=== PATIENT | male | born 1965 | race Asian ===

== ENCOUNTER 2017-09-19 10:40 | Inpatient (IN) | payer OTHER ==
--- NOTE | 2008-09-20 22:00 | NUR ---
CHEST X-RAY DONE AND LAB WORKS DONE AT BEDSIDE. PT FAMILY CAME TO VISIT FAMILY AND HELPED PT TO CLARIFIY INSTRUCTIONS FOR GOLYTELY BOWEL PREP. PT WAS EXPLAINED THAT HE NEEDS TO DRINK A CUP OF GOLYTELY EVERY 1/2 HOUR, NO MORE OR LESS BECAUSE DRINKING BOWEL PREP TOO QUICKLY ALSO HAS SIDE EFFECTS OF NAUSEA AND POSSIBLE VOMITING WHICH THE SURGEON WANTS TO AVOID. PT VERBALIZED UNDERSTANDING THROUGH OBSTETRICS TECHNICIAN. PT TO BE NPO POST MIDNIGHT AND SURGERY TO BE DONE TOMORROW AFTERNOON AT 12 OR 1 PM. PT VERBALIZED UNDERSTANDING.
--- NOTE | 2016-09-20 20:00 | NUR ---
PT V/S FOLLOWS T 98.5 P 60 R 18 B/P 125/89 O2 100
--- NOTE | 2016-10-20 21:00 | NUR ---
DR SHARON COX MD AND SURGEON WAS AT BEDSIDE WITH SURGICAL CONSULT FOR PT. [employer] FITNESS INSTRUCTOR PHONES USED WITH RESOURCE CONSERVATIONIST RAY NO. ID [id number]. VIA [employer] FITNESS INSTRUCTOR DR HERRERA WAS ABLE TO SPEAK WITH RESIDENT REGARDING THE MASS THEY HAD IN PT COLON. PT CONSENTED TO BOWEL SURGERY TO TAKE OUT THE CANCEROUS PART OF THE COLON AND RESECTION THE BOWELS. EXPLAINED TO PT VIA [employer] FITNESS INSTRUCTOR THE POSSIBLE OUTCOMES INCLUDING A NEED FOR 2 SURGERIES WITH THE POSSIBILITY OF AN OSTOMY BAG. PT UNDERSTANDS THE RISK AND BENEFITS EXPLAINED TO THE [employer] FITNESS INSTRUCTOR. NEW ORDERS NOTED FOR PRE- OP PROCEDURE, LAB WORK, CHEST X RAY AND GOLYTELY BOWEL PREP. PT SIGNED CONSENT FOR SURGERY.
[~2017-09-19] VITALS: Ht 175.3 cm; Wt 74.4 kg
[2017-09-19 10:53] VITALS: BP 139/94
--- NOTE | 2017-09-19 10:57 | NUR ---
PT AMBULATES TO ER BED 12
--- NOTE | 2017-09-19 10:58 | NUR ---
PT BIB FOR C/O RT SIDE ABD PAIN AND TENDERNESS FOR 3 MONTHS, WORSE OVER PAST TWO WEEKS. DENIES N/V/D OR FEVER. PT A&O X 4. GCS 15. CMS INTACT. ABD SOFT, TENDER TO PALPATION. RR EVEN UNALBORED, LUNGS BILAT CLEAR. ER MD VAUGHN NOTIFIED. PT NEEDS MET. SAFETY PRECAUTIONS IN PLACE. WILL CONTINUE TO MONITOR. Addendum: 09[facility]19[facility]17 [facility] FOR C/O RT SIDE ABD PAIN AND TENDERNESS FOR 3 MONTHS, WORSE OVER PAST TWO WEEKS. DENIES N/V/D OR FEVER. PT A&O X 4. GCS 15. CMS INTACT. ABD SOFT, TENDER TO PALPATION ON THE UPPER AND LOWER RIGHT QUADRANTS. 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 RR EVEN UNALBORED, LUNGS BILAT CLEAR. ER MD VAUGHN NOTIFIED. PT NEEDS MET. SAFETY PRECAUTIONS IN PLACE. WILL CONTINUE TO MONITOR.
--- NOTE | 2017-09-19 11:35 | NUR ---
EKG being done at bedside at this time.
[2017-09-19 12:20] LABS: BASOPHILS # (AUTO) 0.1 K/uL (0.00-0.22); EOSINOPHILS # (AUTO) 0.3 K/uL (0-0.4); EOSINOPHILS % (AUTO) 4.3 % (0.0-4.0); HEMATOCRIT 49.6 % (36-52); HEMOGLOBIN 16.7 g/dL (12.0-18.0); LYMPHOCYTES # (AUTO) 1.9 K/uL (2.0-11.5); LYMPHOCYTES % (AUTO) 26.6 % (20.5-51.1); MEAN CORPUSCULAR HEMOGLOBIN 29 pg (27-31); MEAN CORPUSCULAR HGB CONC 34 g/dL (33-37); MEAN CORPUSCULAR VOLUME 86.7 fL (80-94); MONOCYTES # (AUTO) 0.4 K/uL (0.8-1.0); MONOCYTES % (AUTO) 6.2 % (1.7-9.3); NEUTROPHILS # (AUTO) 4.3 K/uL (1.8-7.7); NEUTROPHILS % (AUTO) 61.9 % (42.2-75.2); PLATELET COUNT (AUTO) 185 K/uL (140-450); RED BLOOD CELL COUNT(AUTO) 5.72 MIL/uL (4.20-6.10); RED CELL DISTRIBUTION WIDTH 13.9 % (11.6-13.7)
[2017-09-19 12:35] LABS: ANION GAP 14.7 (8-16); CARBON DIOXIDE 26.1 mmol/L (21-32); CREATININE 1.1 mg/dL (0.7-1.3); POTASSIUM 3.8 mmol/L (3.5-5.1)
[2017-09-19 12:36] LABS: PROTHROMBIN TIME 9.8 secs (10.8-13.4)
--- NOTE | 2017-09-19 12:37 | NUR ---
Lab at bedside at this time drawing second set for blood cultures.
[2017-09-19 12:41] LABS: ALBUMIN 3.8 g/dL (3.4-5.0); TOTAL BILIRUBIN 0.6 mg/dL (0.0-1.0)
--- NOTE | 2017-09-19 12:44 | NUR ---
Critical lab value received from Pes in lab, reported value Lactic Acid 2.1. ER MD Nair notified.
--- NOTE | 2017-09-19 12:51 | NUR ---
Assisted pt to restroom at this time for another attempt at urine collection.
[2017-09-19] MEDS: NACL 0.9% 1,000 ML IV SCH ×4 (13:06→23:57)
[2017-09-19] MEDS ORDERED: HYDROcodone/APAP 5/325 MG 1 TAB TAB PO PRN (14:00)
[2017-09-19] MEDS ORDERED: ACETAMINOPHEN 325 MG TAB PO PRN (14:00)
[2017-09-19] MEDS ORDERED: ONDANSETRON 4 MG/2 ML VIAL IVP PRN (14:00)
--- NOTE | 2017-09-19 14:05 | NUR ---
PT RESTING COMFORTABLY IN [facility] AT THIS TIME WITH HIS FAMILY AT THE BEDSIDE.
[2017-09-19 14:20] LABS: APPEARANCE,URINE CLEAR (CLEAR); BILIRUBIN,URINE NEGATIVE (NEGATIVE); BLOOD, URINE NEGATIVE (NEGATIVE); COLOR,URINE YELLOW (YELLOW); LEUKOCYTE ESTERASE ,URINE NEGATIVE (NEGATIVE); NITRITE, URINE NEGATIVE (NEGATIVE); UGLUCOSE 3+ (NEGATIVE)
--- NOTE | 2017-09-19 14:43 | NUR ---
Patient will be admitted to care of MD Alonso. Admited to M/S. Will go to room 105A. Belongings list completed. Report to NASEEM Serrano.
--- NOTE | 2017-09-19 15:10 | NUR ---
PATIENT FOUND IN THE ROOM WITH HIS TWO ADULT CHILDREN, ADMISSION ASSESSMENT COMPLETED WITH THE HELP OF RAJINDER ALFREDO. PATIENT IS STABLE AND ALERT AND ORIENTED. WILL MONITOR.
[2017-09-19 15:13] VITALS: BP 128/86
--- NOTE | 2017-09-19 17:30 | NUR ---
PATIENT SLEEPING AT THIS TIME, NO DISTRESS NOTED.
--- NOTE | 2017-09-19 19:30 | NUR ---
REPORT RECEIVED FORM BLADIMIR GUSMAN DAY SHIFT NURSE AT BEDSIDE. PT AO X4. HE IS A MANDARIN SPEAKING MALE, ALTHOUGH HE DOES SPEAK SOME POLISH. HE IS LYING IN BED WITH HOB UP 35 DEGREES AND BED IN LOW POSITION. PT HAS CALL GOOD IN REACH. HIS SKIN IS INTACT AND HE HAS A RIGHT WRIST 20G RUNNING NACL AT 100MLS/HR. SITE HAS NO S/S OF INFECTION AND IS FLUSHED PATENT. PT HAS NO S/S OF PAIN OR DISTRESS BOWEL SOUNDS HEARD IN ALL 4 QUADS AND LUNGS CLEAR.
[2017-09-19 20:00] VITALS: BP 118/84
--- NOTE | 2017-09-19 21:30 | NUR ---
PT SLEEPING IN BED NO S/S OF PAIN OR DISTRES NACL RUNNING AT 100MLS/HR ORDERED. CALL GOOD IN REACH AND SIDE RAILS UP X2. ALL NEEDS ATTENDED BY STAFF.
[2017-09-20] VITALS: BP 103/69
[2017-09-20 06:53] LABS: BASOPHILS # (AUTO) 0.1 K/uL (0.00-0.22); BASOPHILS % (AUTO) 1.1 % (0.0-2.0); EOSINOPHILS # (AUTO) 0.4 K/uL (0-0.4); EOSINOPHILS % (AUTO) 5.5 % (0.0-4.0); HEMATOCRIT 46.9 % (36-52); HEMOGLOBIN 15.7 g/dL (12.0-18.0); LYMPHOCYTES # (AUTO) 2.5 K/uL (2.0-11.5); LYMPHOCYTES % (AUTO) 39.2 % (20.5-51.1); MEAN CORPUSCULAR HEMOGLOBIN 29 pg (27-31); MEAN CORPUSCULAR HGB CONC 33 g/dL (33-37); MEAN CORPUSCULAR VOLUME 87.7 fL (80-94); MONOCYTES # (AUTO) 0.4 K/uL (0.8-1.0); MONOCYTES % (AUTO) 6.9 % (1.7-9.3); NEUTROPHILS # (AUTO) 3.1 K/uL (1.8-7.7); NEUTROPHILS % (AUTO) 47.3 % (42.2-75.2); PLATELET COUNT (AUTO) 183 K/uL (140-450); RED BLOOD CELL COUNT(AUTO) 5.35 MIL/uL (4.20-6.10); RED CELL DISTRIBUTION WIDTH 13.9 % (11.6-13.7); WHITE BLOOD COUNT (AUTO) 6.5 K/uL (4.8-10.8)
--- NOTE | 2017-09-20 07:10 | NUR ---
REPORT GIVEN TO BREANNA RN DAY NURSE AT BEDSIDE PT IN STABLE CONDITION
[2017-09-20 07:14] LABS: ALBUMIN 3.5 g/dL (3.4-5.0); ANION GAP 13.6 (8-16); CARBON DIOXIDE 24.8 mmol/L (21-32); CREATININE 0.9 mg/dL (0.7-1.3); POTASSIUM 3.4 mmol/L (3.5-5.1); TOTAL BILIRUBIN 0.8 mg/dL (0.0-1.0)
--- NOTE | 2017-09-20 07:30 | NUR ---
REPORT RECEIVED FROM BENCH LOOM WEAVER NURSE AT BEDSIDE. PT IS AAO X4. IV NOTED TO THE RIGHT WRIST 20G RUNNING NS AT 100MLS/HR. IV CATH IS PATENT, INTACT, AND ASYMPTOMATIC. BOWEL SOUND ACTIVE, PAIN AT TOLERABLE LEVEL. SAFETY PRECAUTION IN PLACE. CALL LIGHT WITHIN REACH, WILL CONTINUE TO MONITOR.
[2017-09-20 08:00] VITALS: BP 120/88
[2017-09-20] MEDS: ENOXAPARIN 40 MG/0.4 ML SYR SUBQ SCH (08:49)
--- NOTE | 2017-09-20 08:50 | NUR ---
PT REFUSED IVF. PT IS HEPLOCKED.
--- NOTE | 2017-09-20 09:04 | NUR ---
PATIENT HAS BEEN SCREENED AND CATEGORIZED HIGH NUTRITION RISK. PATIENT WILL BE SEEN WITHIN 1-2 DAYS OF ADMISSION. 09/20/17 09/21/[address]
--- NOTE | 2017-09-20 09:30 | NUR ---
DR TABARES HAS SEEN THE PT.
--- NOTE | 2017-09-20 13:18 | NUR ---
Clinical review faxed to [facility] at [phone]
[2017-09-20 16:00] VITALS: BP 115/75
--- NOTE | 2017-09-20 16:50 | NUR ---
SPOKE WITH [employer] DISTRIBUTOR OF DR HERRERA OFFICE, TO PAGE DR HERRERA FOR CONSULT FOR THE PT.
--- NOTE | 2017-09-20 19:25 | NUR ---
SPOKE WITH DR TOMLINSON WHO IS MAGNETOMETER OPERATOR FOR DR TABARES. PER , PT CAN HAVE SOME MILK AND CHOCOLATE BUT MONITOR FOR STOMACH UPSET. ORDERED 20MEQ PO K DUR FOR K 3.4
[2017-09-20] MEDS ORDERED: POTASSIUM CHLORIDE 10 MEQ TABER PO SCH (19:30)
--- NOTE | 2017-09-20 19:30 | NUR ---
REPORT RECEIVED AT BEDSIDE FROM BREANNA RN DAYSHIFT NURSE. PT IN LOW BED A0X4 WITH SIDE RAILS UP AND CALL GOOD IN REACH. PT SKIN INTACT. HE HAS A RIGHT WRIST 20 G JOSE SITE INTACT NO S/S OF INFECTION NOTED. NEW ORDER NOTED FOR 20MEQ K IN 1000 MLS OF NACL, DUE TO LOW POTASSUIM.
--- NOTE | 2017-09-20 19:30 | NUR ---
REPORT GIVEN TO SPECIAL EDUCATION CLASSROOM AIDE NURSE AT BEDSIDE. PT IN STABLE CONDITION.
[2017-09-20] MEDS ORDERED: BOWEL EVACUANT DRINK 4,000 ML PDS PO SCH (21:10)
[2017-09-20] MEDS: POTASSIUM CHL 20 MEQ/NACL 0.9% 1,000 ML IV SCH (22:08)
--- NOTE | 2017-09-20 23:00 | NUR ---
USED ATTENDANT CAMPGROUND PHONE WITH ATTENDANT CAMPGROUND RAY ID # [id number]. PT INSTRUCTIONS FOR BOWEL PREP WAS REITERATED WELL ANY CONCERNS REGARDING PRE SURGICAL PREP.
[2017-09-21] VITALS: BP 133/93
--- NOTE | 2017-09-21 01:00 | NUR ---
PT IN ROOM IV RUNNING ORDERED NACL WITH 20MEQ. NO S/S OF INFILTRATION. PT COMPLIANT WITH GOLYTELY BOWEL PREP. PT SHOWED PRIMARY RN BOWEL MATTER REQUESTED DURING THE TELEPHONE SMALL ENGINE TRAINER CONVERSATION. BOWEL MOVEMENT HAD NO SOLID MATTER. PT HAD NO C/O OF N/V AT THIS TIME. PT VERBALIZED UNDERSTANDING OF NPO STATUS.
[2017-09-21] MEDS: POTASSIUM CHL 20 MEQ/NACL 0.9% 1,000 ML IV SCH ×3 (04:30→17:15)
--- NOTE | 2017-09-21 07:20 | NUR ---
REPORT GIVEN AT BEDSIDE FOR TRASNSFER OF CARE TO BREANNA RN DAY NURSE. PT IN STABLE CONDITION
[2017-09-21 08:00] VITALS: BP 118/87
[2017-09-21] MEDS: ENOXAPARIN 40 MG/0.4 ML SYR SUBQ SCH (09:00)
--- NOTE | 2017-09-21 09:19 | NUR ---
PT MIGHT GOING FOR SX TODAY, LOVENOX NOT GIVEN.
--- NOTE | 2017-09-21 10:05 | NUR ---
PT IS AWARE OF THE SX TODAY. AND VERBALIZED UNDERSTANDING. NO QUESTION OR CONCERN AT THIS TIME.
--- NOTE | 2017-09-21 12:30 | NUR ---
STARTED NEW IV ON THE LEFT FA. 20G. REMOVED IV RIGHT WRIST , TIP INTACT, PRESSURE APPLIED.
--- NOTE | 2017-09-21 14:15 | NUR ---
09/21/17 RD INITIAL ASSESSMENT COMPLETED PLEASE REFER TO NUTRITION ASSESSMENT UNDER CARE ACTIVITY FOR ESTIMATED NUTRITIONAL NEEDS. 1. CONTINUE NPO DIET MEDICALLY NECESSARY 2. RECOMMEND CARDIAC DIET WHEN ADVANCING TO ORAL DIET. 3. RD TO FOLLOW-UP 2-3 DAYS, HIGH RISK BIJU LEWIS, RD
--- NOTE | 2017-09-21 14:19 | NUR ---
FAXED CONCURRENT REVIEW TO [facility] [phone] PHONE EREN [phone]
--- NOTE | 2017-09-21 14:20 | NUR ---
PT TAKEN TO OR. PT IS IN STABLE CONDITION.
[2017-09-21] MEDS ORDERED: BUPIVACAINE-MPF 0.25% 30 ML VIAL INJ ONE (14:55)
[2017-09-21] MEDS ORDERED: ROCURONIUM 50 MG/5 ML VIAL IV ONE (15:16)
[2017-09-21] MEDS ORDERED: fentaNYL 0.05 MG/ML VIAL ONE (15:16)
[2017-09-21] MEDS ORDERED: KETOROLAC 30 MG/ML VIAL ONE (15:16)
[2017-09-21] MEDS ORDERED: HYDROmorphone PFS 2 MG/ML SYR ONE ×2 (15:16→17:58)
[2017-09-21] MEDS ORDERED: PHENYLEPHRINE 10 MG/ML VIAL ONE (15:16)
[2017-09-21] MEDS ORDERED: DESFLURANE 240 ML BTL INH ONE (15:16)
[2017-09-21] MEDS ORDERED: GLYCOPYRROLATE 0.2 MG/ML VIAL ONE (15:16)
[2017-09-21] MEDS ORDERED: DEXAMETHASONE 4 MG/ML VIAL ONE (15:16)
[2017-09-21] MEDS ORDERED: SUCCINYLCHOLINE CHLORIDE 200 MG/10 ML VIAL IVP ONE (15:16)
[2017-09-21] MEDS ORDERED: LEVOFLOXACIN 750 MG/D5W PREMIX 150 ML IV SCH (15:36)
[2017-09-21] MEDS ORDERED: ONDANSETRON 4 MG/2 ML VIAL IVP PRN (16:20)
[2017-09-21] MEDS: HYDROmorphone 1 MG/ML AMP IVP PRN ×2 (17:58→18:10)
--- NOTE | 2017-09-21 19:10 | NUR ---
REPORT GIVEN TO NAVAL AIRCREWMAN MECHANICAL NURSE AT BEDSIDE. PT JUST CAME BACK FROM SX, V/S WITHIN NORMAL LIMIT. PT IN STABLE CONDITION.
--- NOTE | 2017-09-21 19:15 | NUR ---
RECEIVED PATIENT TRANSFERRED FROM THE OR. REPORT RECEIVED AT THE BEDSIDE, PER OR NURSE STEPHANIE, PATIENT RECEIVED LEVOFLOXACIN 750MG AND FLAGYL 500MG IN THE OR. PATIENT RESTING IN BED, NO S/S OF DISTRESS NOTED, RESPIRATION EVEN AND UNLABORED, ON O2 NC 2L. VITAL SIGNS STABLE. KIM IN PLACE AND DRAINING URINE BY GRAVITY. DRESSING ON THE ABDOMEN DRY AND INTACT. CALL LIGHT WITHIN REACH, SAFETY MEASURE ENSURED, WILL CONTINUE TO MONITOR.
[2017-09-21 20:00] VITALS: BP 126/84
[2017-09-21] MEDS: metroNIDAZOLE 500 MG/NS PREMIX 100 ML IV SCH ×3 (20:25→21:50)
[2017-09-21 20:26] LABS: HEMATOCRIT 47.8 % (36-52); HEMOGLOBIN 15.7 g/dL (12.0-18.0); MEAN CORPUSCULAR HEMOGLOBIN 29 pg (27-31); MEAN CORPUSCULAR HGB CONC 33 g/dL (33-37); MEAN CORPUSCULAR VOLUME 87.3 fL (80-94); PLATELET COUNT (AUTO) 192 K/uL (140-450); RED BLOOD CELL COUNT(AUTO) 5.48 MIL/uL (4.20-6.10); RED CELL DISTRIBUTION WIDTH 14.3 % (11.6-13.7); WHITE BLOOD COUNT (AUTO) 13.9 K/uL (4.8-10.8)
[2017-09-21 20:52] LABS: LYMPHOCYTES % (MANUAL) 3 % (20-46); MONOCYTES % (MANUAL) 2 % (5-12)
--- NOTE | 2017-09-21 21:50 | NUR ---
FLAGYL 500MG ADMINISTERED, PATIENT TOLERATED WELL. CALL LIGHT WITHIN REACH, SAFETY MEASURE ENSURED, WILL CONTINUE TO MONITOR.
--- NOTE | 2017-09-21 23:45 | NUR ---
VITAL SIGNS STABLE, NO S/S OF DISTRESS NOTED, OFFERED PAIN MEDICATION, BUT PATIENT REFUSED AND STATED," I AM OKAY." EDUCATED PATIENT TO CALL FOR PAIN MEDICATION BEFORE THE PAIN LEVEL BECOME SEVERE. PATIENT VERBALIZED UNDERSTANDING. CALL LIGHT WITHIN REACH, SAFETY MEASURE ENSURED, WILL CONTINUE TO MONITOR.
[2017-09-22] VITALS: BP 124/84
[2017-09-22] MEDS: POTASSIUM CHL 20 MEQ/NACL 0.9% 1,000 ML IV SCH (01:29)
--- NOTE | 2017-09-22 01:36 | NUR ---
PATIENT IS AWAKE, NO S/S OF DISTRESS NOTED, STATED," I DON'T NEED OXYGEN NOW." O2SAT 98%. NASAL CANNULA OFF, EDUCATED PATIENT TO CALL NURSE IF SHORTNESS OF BREATH. PATIENT VERBALIZED UNDERSTANDING.
--- NOTE | 2017-09-22 01:48 | NUR ---
CLARIFIED FLAGYL ORDER WITH PHARMACIST AMBERLY, PER AMBERLY, THE NEXT DOSE FOR FLAGYL IS SCHEDULED AT 0500 AM.
[2017-09-22] MEDS: MORPHINE SULFATE 2 MG/ML SYR IVP PRN ×3 (02:38→17:44)
--- NOTE | 2017-09-22 03:45 | NUR ---
VITAL SIGNS STABLE, NO S/S OF DISTRESS NOTED, RESPIRATION EVEN AND UNLABORED, ON ROOM AIR. ABDOMINAL DRESSING DRY AND INTACT. CALL LIGHT WITHIN REACH, SAFETY MEASURE ENSURED, WILL CONTINUE TO MONITOR.
[2017-09-22 04:00] VITALS: BP 114/77
[2017-09-22] MEDS: metroNIDAZOLE 500 MG/NS PREMIX 100 ML IV SCH ×3 (05:12→20:08)
--- NOTE | 2017-09-22 05:15 | NUR ---
FLAGYL STARTED, PATIENT TOLERATED WELL. CALL LIGHT WITHIN REACH, SAFETY MEASURED, WILL CONTINUE TO MONITOR.
[2017-09-22 06:17] LABS: BASOPHILS % (AUTO) 0.2 % (0.0-2.0); EOSINOPHILS % (AUTO) 0.1 % (0.0-4.0); HEMATOCRIT 44.8 % (36-52); HEMOGLOBIN 14.9 g/dL (12.0-18.0); LYMPHOCYTES # (AUTO) 1.3 K/uL (2.0-11.5); LYMPHOCYTES % (AUTO) 11.1 % (20.5-51.1); MEAN CORPUSCULAR HEMOGLOBIN 29 pg (27-31); MEAN CORPUSCULAR HGB CONC 33 g/dL (33-37); MEAN CORPUSCULAR VOLUME 86.9 fL (80-94); MONOCYTES # (AUTO) 0.8 K/uL (0.8-1.0); MONOCYTES % (AUTO) 6.8 % (1.7-9.3); NEUTROPHILS # (AUTO) 9.7 K/uL (1.8-7.7); NEUTROPHILS % (AUTO) 81.8 % (42.2-75.2); PLATELET COUNT (AUTO) 189 K/uL (140-450); RED BLOOD CELL COUNT(AUTO) 5.16 MIL/uL (4.20-6.10); WHITE BLOOD COUNT (AUTO) 11.8 K/uL (4.8-10.8)
--- NOTE | 2017-09-22 06:45 | NUR ---
ABDOMINAL PAIN 12/31, BP 118/77, HR 68, MORPHINE GIVEN ORDERED, PATIENT TOLERATED WELL. WILL CONTINUE TO MONITOR.
[2017-09-22 07:02] LABS: ALBUMIN 3.1 g/dL (3.4-5.0); ANION GAP 15.9 (8-16); CARBON DIOXIDE 23.2 mmol/L (21-32); CREATININE 0.8 mg/dL (0.7-1.3); POTASSIUM 4.1 mmol/L (3.5-5.1); TOTAL BILIRUBIN 0.8 mg/dL (0.0-1.0)
--- NOTE | 2017-09-22 07:35 | NUR ---
ENDORSED PLAN OF CARE TO DAY SHIFT RN, PATIENT RESTING IN BED, IN STABLE CONDITION.
--- NOTE | 2017-09-22 07:36 | NUR ---
RECEIVED REPORT FROM TANK FURNACE OPERATOR RN. PATIENT IS AAOX4, NO SIGNS AND SYMPTOMS OF ACUTE DISTRESS NOTED AT THIS TIME. AT THE BEDSIDE. HAS IV TO THE LEFT FA 20G RUNNING NS KCL AT 130 ML/HR. SITE IS CLEAN, DRY, PATENT AND INTACT. HAS KIM CATHETER DRAINING TO GRAVITY. PATIENT IS S/P COLECTOMY ON 09/21, SITE HAS DRESSING. DISCUSSED PLAN OF CARE WITH PATIENT AND HE VERBALIZED UNDERSTANDING. BED IN LOWEST POSITION, SIDE RAILS UP X2, CALL LIGHT WITHIN REACH. WILL CONTINUE TO MONITOR.
--- NOTE | 2017-09-22 07:50 | NUR ---
PATIENT REFUSED MORNING VITAL SIGNS.
[2017-09-22] MEDS ORDERED: POTASSIUM CHL 20 MEQ/NACL 0.9% 1,000 ML IV SCH (08:10)
[2017-09-22] MEDS: ENOXAPARIN 40 MG/0.4 ML SYR SUBQ SCH (09:07)
--- NOTE | 2017-09-22 09:12 | NUR ---
GAVE PATIENT LOVENOX, HE TOLERATED WELL.
[2017-09-22] MEDS: POTASSIUM CHL 20MEQ/D5-NS 1,000 ML IV SCH ×2 (10:10→20:08)
[2017-09-22] MEDS: MORPHINE SULFATE 4 MG/ML SYR IVP PRN ×4 (10:49→20:09)
[2017-09-22 12:00] VITALS: BP 125/71
--- NOTE | 2017-09-22 13:35 | NUR ---
REMOVED PATIENTS KIM CATHETER. TOLERATED WELL.
--- NOTE | 2017-09-22 14:00 | NUR ---
CHANGED PATIENTS ABDOMINAL DRESSING. ALL SUTURES ARE INTACT, NO SIGNS AND SYMPTOMS OF INFECTION NOTED. PATIENT TOLERATED WELL.
[2017-09-22 16:00] VITALS: BP 121/87
[2017-09-22] MEDS: LEVOFLOXACIN 750 MG/D5W PREMIX 150 ML IV SCH (16:05)
--- NOTE | 2017-09-22 19:15 | NUR ---
ENDORSED PATIENT TO METER READER INSPECTOR RN FOR CONTINUITY OF CARE. PATIENT IN STABLE CONDITION.
--- NOTE | 2017-09-22 19:25 | NUR ---
RECEIVED REPORT FROM DAY SHIFT, PATIENT RESTING IN BED, NO S/S OF DISTRESS NOTED, RESPIRATION EVEN AND UNLABORED, ON ROOM AIR. IV PATENT AND INTACT, ABDOMINAL DRESSING DRY AND INTACT. PLAN OF CARE DISCUSSED, PATIENT VERBALIZED UNDERSTANDING, CALL LIGHT WITHIN REACH, SAFETY MEASURE ENSURED, WILL CONTINUE TO MONITOR.
[2017-09-22 20:00] VITALS: BP 127/86
--- NOTE | 2017-09-22 20:10 | NUR ---
ABDOMINAL PAIN 9/10, MORPHINE ADMINISTERED ORDERED. PATIENT TOLERATED WELL. CALL LIGHT WITHIN REACH, SAFETY MEASURE ENSURED, WILL CONTINUE TO MONITOR.
--- NOTE | 2017-09-22 20:40 | NUR ---
INFORMED DR. HERRERA THAT PATIENT HASN'T URINATED SINCE THE KIM WAS D/C AROUND 1330 PM, AND PATIENT NEEDS STRONGER PAIN MEDICATION, DR. HERRERA SAID," IT'S OKAY, JUST MONITORING." RECEIVED ORDER OF DILAUDID 0.5MG IVP PRN Q2H FOR MODERATE PAIN, DILAUDID 1MG IVP PRN Q4H FOR SEVERE PAIN.
[2017-09-22] MEDS ORDERED: LEVOFLOXACIN 500 MG/D5W PREMIX 100 ML IV ONE (23:00)
[2017-09-22] MEDS: HYDROmorphone 1 MG/ML AMP IVP PRN (23:14)
[2017-09-22 23:24] VITALS: BP 126/92
--- NOTE | 2017-09-22 23:24 | NUR ---
400 ML URINE OUTPUT. PATIENT STATED ABDOMINAL PAIN 9/, BP 126/92, HR 78, DILAUDID 1MG GIVEN ORDERED. PATIENT TOLERATED WELL. SAFETY MEASURE ENSURED, WILL CONTINUE TO MONITOR.
[2017-09-23] MEDS: HYDROmorphone 1 MG/ML AMP IVP PRN ×8 (02:14→23:25)
--- NOTE | 2017-09-23 02:22 | NUR ---
ABDOMINAL PAIN /10, BP 130/96, HR 80, DILAUDID 0.5MG ADMINISTERED, WILL CONTINUE TO MONITOR.
[2017-09-23 04:00] VITALS: BP 137/96
[2017-09-23] MEDS: metroNIDAZOLE 500 MG/NS PREMIX 100 ML IV SCH ×3 (04:15→20:29)
--- NOTE | 2017-09-23 04:25 | NUR ---
ABDOMINAL PAIN 12/31, BP 137/96, HR 80, DILAUDID 1MG GIVEN ORDERED. WILL CONTINUE TO MONITOR.
[2017-09-23] MEDS: POTASSIUM CHL 20MEQ/D5-NS 1,000 ML IV SCH ×2 (06:12→16:31)
[2017-09-23 06:42] LABS: BASOPHILS % (AUTO) 0.4 % (0.0-2.0); EOSINOPHILS # (AUTO) 0.1 K/uL (0-0.4); EOSINOPHILS % (AUTO) 0.8 % (0.0-4.0); HEMATOCRIT 44.6 % (36-52); HEMOGLOBIN 15.1 g/dL (12.0-18.0); LYMPHOCYTES # (AUTO) 1.4 K/uL (2.0-11.5); LYMPHOCYTES % (AUTO) 13.9 % (20.5-51.1); MEAN CORPUSCULAR HEMOGLOBIN 29 pg (27-31); MEAN CORPUSCULAR HGB CONC 34 g/dL (33-37); MEAN CORPUSCULAR VOLUME 86.8 fL (80-94); MONOCYTES # (AUTO) 0.8 K/uL (0.8-1.0); MONOCYTES % (AUTO) 8.2 % (1.7-9.3); NEUTROPHILS # (AUTO) 7.7 K/uL (1.8-7.7); NEUTROPHILS % (AUTO) 76.7 % (42.2-75.2); PLATELET COUNT (AUTO) 188 K/uL (140-450); RED BLOOD CELL COUNT(AUTO) 5.14 MIL/uL (4.20-6.10); RED CELL DISTRIBUTION WIDTH 14.1 % (11.6-13.7)
[2017-09-23 07:09] LABS: ANION GAP 9.8 (8-16); CARBON DIOXIDE 26.6 mmol/L (21-32); CREATININE 0.8 mg/dL (0.7-1.3); POTASSIUM 3.4 mmol/L (3.5-5.1); TOTAL BILIRUBIN 0.8 mg/dL (0.0-1.0)
--- NOTE | 2017-09-23 07:29 | NUR ---
ENDORSED PLAN OF CARE TO DAY SHIFT, PATIENT RESTING IN BED, IN STABLE CONDITION.
--- NOTE | 2017-09-23 07:30 | NUR ---
RECEIVED REPORT FROM CLIP BAKER RN. PATIENT IS AAOX4, NO SIGNS AND SYMPTOMS OF ACUTE DISTRESS NOTED AT THIS TIME. AT THE BEDSIDE. HAS IV TO THE LEFT FA 20G RUNNING D5NS 20 MEQ KCL AT 100 ML/HR. SITE IS CLEAN, DRY, PATENT AND INTACT. HAS KIM CATHETER DRAINING TO GRAVITY. PATIENT IS S/P COLECTOMY ON 09/21, SITE HAS DRESSING. DISCUSSED PLAN OF CARE WITH PATIENT AND HE VERBALIZED UNDERSTANDING. BED IN LOWEST POSITION, SIDE RAILS UP X2, CALL LIGHT WITHIN REACH. WILL CONTINUE TO MONITOR.
[2017-09-23 07:55] VITALS: BP 150/99
--- NOTE | 2017-09-23 08:03 | NUR ---
PATIENTS OXYGEN SATURATION WAS 88%, WAS HAVING A HARD TIME TAKING DEEP BREATHS DUE TO THE ABDOMINAL PAIN THAT HE IS EXPERIENCING. MONITORED OXYGEN FOR A FEW MINUTES AND THEN PLACED PATIENT ON 2L NC. BEGAN TO SATURATE AT 93% WITH THE NASAL CANNULA. WILL CONTINUE TO MONITOR.
[2017-09-23] MEDS: ENOXAPARIN 40 MG/0.4 ML SYR SUBQ SCH (08:21)
--- NOTE | 2017-09-23 09:11 | NUR ---
REASSESSED PATIENTS BLOOD PRESSURE AND IT WAS 140/94. WILL CONTINUE TO MONITOR.
[2017-09-23] MEDS ORDERED: hydrALAZINE 20 MG/ML VIAL IVP PRN (09:30)
[2017-09-23] MEDS ORDERED: KCL 20 MEQ/WATER INJ PREMIX 100 ML IV SCH (10:00)
--- NOTE | 2017-09-23 11:15 | NUR ---
EXPLAINED TO PATIENT IMPORTANCE OF TRYING TO GET OUT OF BED OR A LEAST TRY TO SIT AT EDGE OF BED TO HELP OPEN UP LUNGS. EDUCATED FAMILY WELL TO HELP ENCOURAGE HIM TO DO SO.
--- NOTE | 2017-09-23 11:30 | NUR ---
SPOKE WITH DR HERRERA, HE WAS ASKING ABOUT THE PATIENT. I INFORMED HIM THAT I LISTENED TO THE PATIENTS LUNG SOUNDS AND THAT IN THE LEFT LOBE THERE WAS SOME RATTLING NOISE. ALSO INFORMED HIM THAT PATIENT COMPLAINS OF DRY THROAT HAS HARD TIME COUGHING DUE TO PAIN IN ABDOMEN. NO NEW ORDERS AT THIS TIME. WILL CONTINUE TO MONITOR.
[2017-09-23 12:00] VITALS: BP 148/94
--- NOTE | 2017-09-23 14:10 | NUR ---
PATIENT RESTING IN BED.
[2017-09-23 16:00] VITALS: BP 128/95
[2017-09-23] MEDS: LEVOFLOXACIN 750 MG/D5W PREMIX 150 ML IV SCH (16:35)
--- NOTE | 2017-09-23 19:15 | NUR ---
ENDORSED PATIENT TO MANAGER PART RN FOR CONTINUITY OF CARE. PATIENT IN STABLE CONDITION.
--- NOTE | 2017-09-23 19:30 | NUR ---
RECEIVED REPORT FROM DAY SHIFT RN, PATIENT RESTING IN BED, NO S/S OF DISTRESS NOTED, RESPIRATION EVEN AND UNLABORED, ON ROOM AIR. ABDOMINAL DRESSING DRY AND INTACT. IV PATENT AND INTACT. PATIENT STATED THAT HE STOOD UP TWO TIMES TODAY, BUT HAD NOT START TO WALK YET. PLAN OF CARE DISCUSSED, ENCOURAGE TO USE INCENTIVE SPIROMETER. PATIENT VERBALIZED UNDERSTANDING. CALL LIGHT WITHIN REACH, SAFETY MEASURE ENSURED, WILL CONTINUE TO MONITOR.
[2017-09-23 20:00] VITALS: BP 135/97
--- NOTE | 2017-09-23 23:57 | NUR ---
PATIENT WALKED 40 STEPS, PATIENT RESTING IN BED NOW. NO S/S OF DISTRESS NOTED, CALL LIGHT WITHIN REACH, SAFETY MEASURE ENSURED, WILL CONTINUE TO MONITOR.
[2017-09-24] VITALS: BP 134/99
[2017-09-24] MEDS: POTASSIUM CHL 20MEQ/D5-NS 1,000 ML IV SCH ×3 (02:10→20:31)
[2017-09-24] MEDS: HYDROmorphone 1 MG/ML AMP IVP PRN ×6 (02:41→18:37)
--- NOTE | 2017-09-24 04:25 | NUR ---
ABDOMINAL PAIN 6/10, BP 132/90, HR 87, TEMP 98.1, O2SAT 93%, DILAUDID 0.5MG GIVEN ORDERED, WILL CONTINUE TO MONITOR.
[2017-09-24] MEDS: metroNIDAZOLE 500 MG/NS PREMIX 100 ML IV SCH ×3 (04:30→20:32)
[2017-09-24 07:17] LABS: BASOPHILS # (AUTO) 0.1 K/uL (0.00-0.22); BASOPHILS % (AUTO) 0.5 % (0.0-2.0); EOSINOPHILS # (AUTO) 0.1 K/uL (0-0.4); EOSINOPHILS % (AUTO) 1.4 % (0.0-4.0); HEMATOCRIT 44.1 % (36-52); HEMOGLOBIN 14.9 g/dL (12.0-18.0); LYMPHOCYTES # (AUTO) 1.1 K/uL (2.0-11.5); LYMPHOCYTES % (AUTO) 9.9 % (20.5-51.1); MEAN CORPUSCULAR HEMOGLOBIN 29 pg (27-31); MEAN CORPUSCULAR HGB CONC 34 g/dL (33-37); MEAN CORPUSCULAR VOLUME 86.9 fL (80-94); MONOCYTES # (AUTO) 0.7 K/uL (0.8-1.0); MONOCYTES % (AUTO) 6.4 % (1.7-9.3); NEUTROPHILS # (AUTO) 8.8 K/uL (1.8-7.7); NEUTROPHILS % (AUTO) 81.8 % (42.2-75.2); PLATELET COUNT (AUTO) 181 K/uL (140-450); RED BLOOD CELL COUNT(AUTO) 5.07 MIL/uL (4.20-6.10); RED CELL DISTRIBUTION WIDTH 13.9 % (11.6-13.7); WHITE BLOOD COUNT (AUTO) 10.8 K/uL (4.8-10.8)
--- NOTE | 2017-09-24 07:20 | NUR ---
RECEIVED REPORT FROM NIGHT RN AT PT BEDSIDE. PATIENT C/O PAIN, WILL MEDICATE ORDERED. ALERT AND ORIENTED. NO S/S OF ACUTE RESPIRATORY DISTRESS NOTED. AMBULATORY WITH ASSIST. SON AT BEDSIDE, MADE AWARE OF CURRENT PLAN OF CARE. ABDOMINAL GARRY CLEAN AND INTACT.
--- NOTE | 2017-09-24 07:36 | NUR ---
ENDORSED PLAN OF CARE TO DAY SHIFT, PATIENT RESTING IN BED, IN STABLE CONDITION.
[2017-09-24] MEDS: ENOXAPARIN 40 MG/0.4 ML SYR SUBQ SCH (07:42)
[2017-09-24 08:00] VITALS: BP 128/95
[2017-09-24 08:01] LABS: ALBUMIN 2.9 g/dL (3.4-5.0); ANION GAP 21.7 (8-16); CARBON DIOXIDE 26.9 mmol/L (21-32); CREATININE 0.8 mg/dL (0.7-1.3); POTASSIUM 3.6 mmol/L (3.5-5.1)
--- NOTE | 2017-09-24 10:00 | NUR ---
PATIENT AMBULATED AROUND NURSING UNIT WITH TOLERABLE PAIN. PATIENT SEEN BY DR. HERRERA AT BEDSIDE, SURGICAL WOUND ASSESSED, CLEAN DRY AND INTACT. PATIENT CONTINUES WITHOUT PASSING GAS, MD AWARE.
--- NOTE | 2017-09-24 14:31 | NUR ---
09/24/17 RD FOLLOW UP COMPLETED PLEASE REFER TO NUTRITION PROGRESS NOTE UNDER CARE ACTIVITY FOR ESTIMATED NUTRITIONAL NEEDS. 1. CONTINUE CLEAR LIQUID DIET MEDICALLY NECESSARY 2. RECOMMEND CARDIAC DIET WHEN ADVANCING TO ORAL DIET. 3. RD TO FOLLOW-UP 2-3 DAYS, HIGH RISK BIJU LEWIS, SHERYL
[2017-09-24] MEDS: LEVOFLOXACIN 750 MG/D5W PREMIX 150 ML IV SCH (15:26)
[2017-09-24 16:00] VITALS: BP 128/93
--- NOTE | 2017-09-24 19:25 | NUR ---
SBAR REPORT GIVEN TO NASEEM FRANKEL AT PT BEDSIDE. NO S/S OF ACUTE DISTRESS NOTED. PATIENT FAMILY AT BEDSIDE.
[2017-09-24 20:30] VITALS: BP 126/82
[2017-09-25 00:20] VITALS: BP 127/82
[2017-09-25] MEDS: HYDROmorphone 1 MG/ML AMP IVP PRN ×3 (01:46→15:55)
[2017-09-25] MEDS: POTASSIUM CHL 20MEQ/D5-NS 1,000 ML IV SCH (04:38)
[2017-09-25] MEDS: metroNIDAZOLE 500 MG/NS PREMIX 100 ML IV SCH ×2 (04:38→12:28)
--- NOTE | 2017-09-25 06:46 | NUR ---
Daughter at bedside during shift. Pt ambulated 10 feet in young, x1 assist. Medicated for pain Dilaudid 1 mg x1. Tolerate fairly. Guarded but denies pain at times. Educated on incentive spirometer, return demonstration done. 1100 goal at present. Daughter involved in plan of care. IVF infusing and patent. Safety precautions maintained.
--- NOTE | 2017-09-25 07:02 | NUR ---
RECEIVED SHIFT REPORT FROM DIRECTOR OF SPECIAL SERVICES RN. PATIENT STATES THAT PAIN IS TOLERABLE AT THIS TIME. NO DISTRESS NOTED. GARRY ON ABDOMEN CLEAN, DRY AND INTACT, OPEN TO AIR. LUNGS CTA IN ALL [place], INCENTIVE SPIROMETRY AT BEDSIDE. S1 AND S2 NOTED. CALL LIGHT WITHIN REACH, SAFETY MEASURES IN PLACE. WILL CONTINUE TO MONITOR.
[2017-09-25 07:54] VITALS: BP 125/90
[2017-09-25 07:59] LABS: BASOPHILS % (AUTO) 0.5 % (0.0-2.0); EOSINOPHILS # (AUTO) 0.4 K/uL (0-0.4); EOSINOPHILS % (AUTO) 5.7 % (0.0-4.0); HEMATOCRIT 40.8 % (36-52); HEMOGLOBIN 13.6 g/dL (12.0-18.0); LYMPHOCYTES # (AUTO) 1.5 K/uL (2.0-11.5); LYMPHOCYTES % (AUTO) 23.8 % (20.5-51.1); MEAN CORPUSCULAR HEMOGLOBIN 29 pg (27-31); MEAN CORPUSCULAR HGB CONC 33 g/dL (33-37); MEAN CORPUSCULAR VOLUME 87.3 fL (80-94); MONOCYTES # (AUTO) 0.5 K/uL (0.8-1.0); MONOCYTES % (AUTO) 8.4 % (1.7-9.3); NEUTROPHILS # (AUTO) 3.8 K/uL (1.8-7.7); NEUTROPHILS % (AUTO) 61.6 % (42.2-75.2); PLATELET COUNT (AUTO) 192 K/uL (140-450); RED BLOOD CELL COUNT(AUTO) 4.67 MIL/uL (4.20-6.10); RED CELL DISTRIBUTION WIDTH 13.7 % (11.6-13.7); WHITE BLOOD COUNT (AUTO) 6.1 K/uL (4.8-10.8)
[2017-09-25 08:15] LABS: ALBUMIN 2.7 g/dL (3.4-5.0); ANION GAP 10.7 (8-16); CARBON DIOXIDE 26.8 mmol/L (21-32); CREATININE 0.8 mg/dL (0.7-1.3); POTASSIUM 3.5 mmol/L (3.5-5.1); TOTAL BILIRUBIN 0.7 mg/dL (0.0-1.0)
--- NOTE | 2017-09-25 08:40 | NUR ---
PATIENT COMPLAINS OF SURGICAL SITE PAIN 8/10. GARRY ARE CLEAN, DRY, AND OPEN TO AIR. WILL MEDICATE PER MD ORDERS. SAFETY MEASURES IN PLACE, WILL CONTINUE TO MONITOR.
[2017-09-25] MEDS: ENOXAPARIN 40 MG/0.4 ML SYR SUBQ SCH (08:54)
--- NOTE | 2017-09-25 12:40 | NUR ---
PATIENT IS LYING IN BED WITH FAMILY AT BEDSIDE. NO DISTRESS NOTED. SAFETY MEASURES IN PLACE, WILL CONTINUE TO MONITOR.
[2017-09-25] MEDS: LEVOFLOXACIN 750 MG/D5W PREMIX 150 ML IV SCH (15:55)
[2017-09-25 16:00] VITALS: BP 138/98
--- NOTE | 2017-09-25 16:40 | NUR ---
CONCURRENT REVIEW FAXED TO [facility] [phone]
[2017-09-25] MEDS ORDERED: ACET-5629 PO (17:25)
[2017-09-25] MEDS ORDERED: DOCU-300 PO (17:26)
--- NOTE | 2017-09-25 17:45 | NUR ---
DR. HERRERA SAW PATIENT TO DISCUSS PATIENT AND FAMILY MEMBER QUESTIONS AND CONCERNS REGARDING SURGICAL SITE CARE WELL FOLLOW UP PLAN. NURSE AT BEDSIDE TO TRANSLATE. SURGICAL SITE/GARRY ARE CLEAN, DRY, AND OPEN TO AIR. ALL SAFETY MEASURES IN PLACE, CALL LIGHT WITHIN REACH. WILL CONTINUE TO MONITOR.
--- NOTE | 2017-09-25 18:20 | NUR ---
SURGICAL SITE PHOTOS AND MEASUREMENTS WERE TAKEN. SURGICAL SITE/GARRY ARE CLEAN, DRY, AND OPEN TO AIR. ABDOMINAL BINDER APPLIED TO PATIENT. PATIENT IS DRESSED, WITH FAMILY AT BEDSIDE. IV REMOVED WITH MINIMAL BLOOD LOSS AND LUMEN COMPLETELY INTACT. DISCHARGE INSTRUCTIONS AND FOLLOW UP INSTRUCTIONS WERE COMMUNICATED TO PT AND FAMILY. PATIENT/FAMILY WAS INSTRUCTED TO MAKE FOLLOW UP APPOINTMENT WITH DR. HERRERA. NURSE AT BEDSIDE TO TRANSLATE. NEW/ADD PRESCRIPTIONS WERE GIVEN TO PATIENT. PATIENT AND FAMILY VERBALIZED COMPLETE UNDERSTANDING OF ALL DISCHARGE INSTRUCTIONS. ALL PERSONAL BELONGINGS ARE WITH PATIENT. PATIENT IS IN STABLE CONDITION AND READY TO GO HOME VIA PRIVATE VEHICLE.
== END 2017-09-25 18:20 | disposition home or self-care (01) | DRG 221 ==
LOC: MED 10:40 → INTOOBSV 14:08 → MTU 14:08 → OBSVTOIN 09-20 18:03
PROVIDERS: ADMIT Internal Medicine; ATTEND Internal Medicine
PROC: 0DBL0ZZ Excision of Transverse Colon, Open Approach (ICD-10-PCS; principal; 2017-09-21 15:00)
DX: C18.9 Malignant neoplasm of colon, unspecified (principal); K56.600 Partial intestinal obstruction, unspecified as to cause; I10 Essential (primary) hypertension; F17.210 Nicotine dependence, cigarettes, uncomplicated; D72.829 Elevated white blood cell count, unspecified; Z88.0 Allergy status to penicillin; Z90.49 Acquired absence of other specified parts of digestive tract; Z53.31 Laparoscopic surgical procedure converted to open procedure
CPT/HCPCS: 96360; 99285; G0378; 36415; 71045; 80053; 81003; 82378; 83605; 85025; 85610; 85730; 86886; 86900; 86901; 87040; 87081; 93005; J0330; J1100; J1170; J1650; J1885; J1956; J2270; J2370; J3010; J3480; J3490; J7030